=== PATIENT | female | born 1960 | race Caucasian/White ===

== ENCOUNTER 2022-12-22 23:05 | Emergency (ER) | payer SELFPAY ==
[~2022-12-22] VITALS: Ht 157.5 cm; Wt 102.1 kg
[2022-12-23 02:58] VITALS: BP 125/61
== END 2022-12-23 02:59 | disposition home or self-care (01) ==
LOC: ER 23:05
DX: S00.03XA Contusion of scalp, initial encounter (principal); Y04.8XXA Assault by other bodily force, initial encounter
CPT/HCPCS: 99283

== ENCOUNTER → 2024-02-20 | Outpatient (CLI) | payer OTHER ==
[2024-03-01 15:02] LABS: HPV HIGH RISK BY TMA Not Detected; HPV SOURCE Vaginal
== END ==
LOC: LAB 17:43 → LAB SHORT 17:43
PROVIDERS: Family Medicine
DX: Z01.419 Encounter for gynecological examination (general) (routine) without abnormal findings (principal)
CPT/HCPCS: 87624; G0123